=== PATIENT | male | born 1995 | race Caucasian/White ===

== ENCOUNTER 2020-05-17 21:37 | Emergency (ER) | payer SELFPAY ==
[2020-05-17 21:39] VITALS: BP 131/75; PULSE 84; RESP 18; TEMP 35.7; O2SAT 100; BMI 27.1
--- NOTE | 2020-05-17 21:58 | PC.NURSE ---
PER PT THIS IS BULLSHIT, I'LL COME BACK ANOTHER DAY. PATIENT EDUCATED AND ENCOURAGED TO REMAIN FOR EVAL AND TREATMENT.
== END 2020-05-17 23:10 | disposition left against medical advice (07) ==
LOC: HO.ED 22:52
PROVIDERS: Emergency Provider Emergency Medicine
DX: J30.9 Allergic rhinitis, unspecified (principal); R10.84 Generalized abdominal pain; K40.91 Unilateral inguinal hernia, without obstruction or gangrene, recurrent; Z20.828 Contact with and (suspected) exposure to other viral communicable diseases
CPT/HCPCS: 99281; 99282

== ENCOUNTER 2020-05-18 10:31 | Emergency (ER) | payer OTHER, SELFPAY ==
[2020-05-18 12:01] VITALS: BP 139/88; PULSE 75; RESP 14; TEMP 36.6; O2SAT 99; BMI 26.4
--- NOTE | 2020-05-18 12:07 | ED_ITS ---
HPI - General Adult General Chief complaint: Abdominal Pain Stated complaint: HERNIA Time Seen by Provider: 05/18/20 11:56 Source: patient Mode of arrival: ambulatory Limitations: no limitations History of Present Illness HPI narrative: Pt here with multiple complaints. C/o sneezing, dry cough, scratchy throat x 2 days. No fevers/chills/body aches. Also c/o left lower abdomen bulging and pain. 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 Onset (ago): day(s) Location: abdomen Radiation: non-radiation Severity: mild Related Data Previous Rx's Medication Instructions Recorded cetirizine 10 mg PO DAILY #20 tab 05/18/20 fluticasone propionate [Flonase 1 spray INTRANASAL BID #9.9 ml 05/18/20 Allergy Relief] Allergies Allergy/AdvReac Type Severity Reaction Status Date / Time No Known Allergies Allergy Unverified 04/29/20 16:30 [No Known Allergies*] Review of Systems Review of Systems: Yes all other systems are reviewed and are negative Constitutional: Constitutional: Reports no additional constitutional complaints, Denies body ache(s), Denies chills, Denies fever(s), Denies headache(s) and Denies weakness Eyes: Eyes: Reports no additional eye complaints and Denies diplopia ENT: Reports system reviewed and no additional complaints, except as documented, Denies dizziness, Denies headache(s) and Denies neck pain Comments: rhinorrhea, itching throat, sneezing Cardiovascular: Cardiovascular: Reports no additional cardiovascular complaints, Denies chest pain, Denies leg edema and Denies dyspnea Respiratory: Respiratory: Reports no additional respiratory complaints, Reports cough and Denies dyspnea Gastrointestinal: Gastrointestinal: Reports no additional gastrointestinal com plaints, Denies abdominal pain, Denies diarrhea, Denies nausea and Denies vomiting Musculoskeletal: Musculoskeletal: Reports no additional musculoskeletal complaints, Denies back pain, Denies myalgias, Denies arthralgias, Denies joint swelling, Denies neck pain, Denies numbness and Denies tingling Integumentary/Breasts: Skin/Breast: Reports system reviewed and no additional complaints, except as docu and Denies rash Neurologic: Reports system reviewed and no additional complaints, except as documented, Denies Abnormal speech present, Denies dizziness, Denies headache(s), Denies numbness, Denies tingling and Denies weakness PMFSH Past Medical History Attestation statement: The following information was validated with the patient. Source: obtained from family and nursing notes reviewed Medical History No known health problems Surgical abdomen Physical Exam Vital Signs and I&O and Narrative: Vital Signs and I&O: Vital Signs Temp 98 F 05/18/20 12:08 Pulse 75 05/18/20 12:08 Resp 13 05/18/20 12:08 BP 139/88 05/18/20 12:08 Pulse Ox 99 05/18/20 12:08 Intake & Output 05/17/20 05/18/20 05/18/20 18:59 06:59 18:59 Weight 88.451 kg Body Mass Index 26.4 Const: General: cooperative, healthy appearing, comfortable and no acute distress Orientation/consciousness: patient oriented x3 Limitations: no limitations HENMT: Head: Yes normal to inspection Ears: hearing grossly normal bilaterally General nose exam: Normal external nose present Face and sinus: Yes normal facial exam Mouth: Normal oral and palatal mucosa present Throat: Yes posterior oropharynx normal Eyes: General: appearance normal, both eyes and all related structures Pupils: Equal, round and reactive pupils present Neck: Neck: Yes normal visual inspection Chest: Chest palpation & inspection: normal inspection of the chest Resp: Effort & Inspection: normal respiratory effort Auscultation: clear to auscultation bilaterally Cardio: Rate: regular rate Rhythm: regular rhythm Peripheral pulses: Peripheral pulses 2+ throughout GI: Inspection: Yes normal to inspection Palpation (GI): Soft to palpation, nontender and no masses Auscultation: normal bowel sounds Back/Spine/Pelvis: Thoracic/Lumbar Spine: thoracic and lumbar spine normal to inspection Skin: General skin exam: no rashes or lesions noted Neuro: General: patient oriented x3, no focal motor deficits and normal sensation to monofilament Cranial nerves: Yes Equal, round and reactive pupils present Cognition (Neuro): normal cognition Speech: No Abnormal speech present Gait exam (Neuro): Normal gait present Motor exam (neuro): 5/5 motor strength present throughout Extrem: General: Yes normal to inspection Medical Decision Making MDM Narrative Medical decision making narrative: Pt here with symptoms of allergic rhinitis. Offered COVID testing but less likely and patient declined. Also c/o intermittent bulge to left lower abdomen worsened with coughing, lifting heavy objects. On exam no palpable lymphadenopathy or inguinal hernia but HPI c/w with inguinal hernia. Reviewed worrisome signs/symptoms with patient and when to return to ED. Comfortable with discharge home . Discharge Plan Discharge Clinical Impression: Allergic rhinitis Qualifiers: Allergic rhinitis trigger: other Allergic rhinitis seasonality: seasonal Qualified Code(s): J30.89 - Other allergic rhinitis Inguinal hernia Qualifiers: Obstruction and gangrene presence: without obstruction or gangrene Laterality: unilateral Recurrence: recurrent Qualified Code(s): K40.91 - Unilateral inguinal hernia, without obstruction or gangrene, recurrent Patient Disposition: Home, Self-Care Instructions: Inguinal Hernia (ED), Allergic Rhinitis (ED) Additional Instructions: Warm, moist air Follow-up with general surgery if you elect to have this hernia repaired Prescriptions: New cetirizine 10 mg tablet 10 mg PO DAILY Qty: 20 RF: 0 fluticasone propionate [Flonase Allergy Relief] 50 mcg/actuation spray,suspension 1 spray intranasal BID Qty: 9.9 RF: 0 Referrals: Yadira Cano MD [Physician] - 5 days Stand Alone Forms: Work/School Release Interventions: ED Discharge Assessment Last Done: 05/18/20 12:19 Discharge Date/Time: 05/18/20 12:19
[2020-05-18 12:08] VITALS: BP 139/88; PULSE 75; RESP 13; TEMP 36.6; O2SAT 99; BMI 26.4
== END 2020-05-18 12:19 | disposition home or self-care (01) ==
PROVIDERS: Emergency Provider Emergency Medicine
DX: K40.91 Unilateral inguinal hernia, without obstruction or gangrene, recurrent (principal); J30.89 Other allergic rhinitis
CPT/HCPCS: 99283

== ENCOUNTER 2020-06-20 21:46 | Emergency (ER) | payer OTHER, SELFPAY ==
--- NOTE | 2020-06-20 22:43 | PC.NURSE ---
patient advised to wait and be tested for covid stated he did not want to wait anymore and left
== END 2020-06-20 22:42 | disposition left against medical advice (07) ==
PROVIDERS: Emergency Provider Emergency Medicine
DX: R05 Cough (principal); R51.9 Headache, unspecified
CPT/HCPCS: 99281

== ENCOUNTER 2020-07-06 14:59 | Outpatient (REF) | payer OTHER, SELFPAY | END 2020-07-06 15:00 | disposition home or self-care (01) | LOC: HO.LAB 14:59 | PROVIDERS: Visit Provider Internal Medicine | DX: Z20.828 Contact with and (suspected) exposure to other viral communicable diseases (principal) | CPT/HCPCS: C9803; U0003 ==

== ENCOUNTER 2020-07-29 01:52 | Emergency (ER) | payer OTHER, SELFPAY ==
[2020-07-29 01:59] VITALS: BP 138/80; PULSE 66; PULSE 71; RESP 16; TEMP 36.6; O2SAT 97; O2SAT 98; BMI 23.2
--- NOTE | 2020-07-29 02:17 | CT_ITS ---
EXAMINATION: CT ABDOMEN AND PELVIS WITH CONTRAST CLINICAL INFORMATION: Left inguinal pain. COMPARISON: None. TECHNIQUE: Contiguous axial thin section helical images of the abdomen and pelvis were performed following the administration of 100 mL of intravenous Omnipaque 300. The data set was reformatted in the coronal and sagittal planes and reviewed on an independent workstation. DLP: 575 mGy-cm. FINDINGS: The visualized lung bases are clear. The visualized portions of the heart are unremarkable. The liver is of normal size and attenuation without focal lesions nor intrahepatic biliary ductal dilation. A normal gallbladder is identified. There is no wall thickening or discernible pericholecystic fluid. The spleen, pancreas, adrenal glands are unremarkable. Both kidneys are of normal size and attenuation without hydronephrosis. There is a 2 mm nonobstructive calculus within the interpole region of the right kidney. Following the administration of IV contrast, prompt symmetric nephrograms are displayed. There are numerous bilateral renal cysts. There is no abdominal free fluid. There is neither mesenteric nor retroperitoneal lymphadenopathy. Normal unopacified loops of small and large bowel are identified. There is no pelvic free fluid. The urinary bladder is unremarkable. There are numerous cysts posterior to the urinary bladder, likely within the prostate gland. There is neither pelvic nor inguinal lymphadenopathy. Bone windows: Neither sclerotic nor lytic bone lesions are identified. CT/CT abdomen pelvis w con IMPRESSION: Numerous renal cysts bilaterally. No hydronephrosis. Punctate nonobstructive right renal calculus. No acute abdominal or pelvic inflammatory or infectious processes. Numerous prostatic and periprostatic cysts. Consider correlation with ultrasound or pelvic MRI for further tissue characterization. Automated exposure control (Care Dose) Adjustment of the mA and/or kv according to patient size (this includes techniques or standardized protocols for targeted exams where dose is matched to indication / reason for exam; i.e. extremities or head).
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
[2020-07-29 02:28] LABS: Basophils Percent Auto 0.6 % (0-2); Eosinophils Absolute Auto 0.2 X10*3/uL (0.0-0.4); Eosinophils Percent Auto 2.7 % (0-4); Hematocrit 45.1 % (42-52); Hemoglobin 15.7 g/dl (14.0-18.0); Imm Gran Abs Auto 0.01 X10*3/uL (0.00-0.03); Imm Gran Pct Auto 0.1 % (0.0-0.4); Lymphocytes Absolute Auto 2.2 X10*3/uL (1.2-4.9); Lymphocytes Percent Auto 30.7 % (20-40); MANUAL DIFF FLAG NO; Mean Corpuscular HGB Conc 34.8 g/dl (31.0-36.0); Mean Corpuscular Hemoglobin 30.5 pg (27.0-33.0); Mean Corpuscular Volume 87.7 fL (80-98); Mean Platelet Volume 10.6 fL (9.4-12.4); Monocytes Absolute Auto 0.7 X10*3/uL (0.1-1.2); Monocytes Percent Auto 9.7 % (2-11); Neutrophils Percent Auto 56.2 % (45-73); Platelet Count 241 X10*3/uL (160-400); Red Blood Count 5.14 X10*6/uL (4.60-5.80); Red Cell Distribution Width 12.5 % (11.0-16.0); White Blood Count 7.1 X10*3/uL (4.8-10.8)
[2020-07-29] MEDS: 0.9 % Sodium Chloride 1,000 ML 999 ML IV (02:53)
[2020-07-29] MEDS: Ketorolac Tromethamine 15 MG/ML VIAL IVPUSH (02:57)
[2020-07-29 02:59] LABS: Alanine Aminotransferase 17 U/L (0-40); Albumin Level 4.2 g/dL (3.5-5.0); Alkaline Phosphatase 55 U/L (39-117); Anion Gap 12 (12-20); Aspartate Amino Transferase 20 U/L (5-37); Bilirubin Total 0.5 mg/dL (0.0-1.0); Blood Urea Nitrogen 13 mg/dL (9-16); Carbon Dioxide 27 mmol/L (22-29); Chloride 103 mmol/L (96-108); Creatinine Clr Calc Pharmacy 140.6; Estimated Glomerular Filt Rate > 60; Glucose Random 91 mg/dL (60-115); Potassium 4.1 mmol/l (3.3-5.1); Sodium 138 mmol/L (135-145); Total Protein 6.3 g/dL (6.5-8.0)
[2020-07-29 04:00] VITALS: BP 107/74; PULSE 63; RESP 15; O2SAT 99
--- NOTE | 2020-07-29 04:04 | PC.NURSE ---
Patient back from CAT Scan. Currently awaiting results of scan and re-evaluation from
[2020-07-29] MEDS: iohexoL 350 MG/ML 100 ML INFUS..BTL 85 ML IV (05:36)
== END 2020-07-29 05:29 | disposition home or self-care (01) ==
PROVIDERS: Emergency Provider Student in an Organized Health Care Education/Training Program
DX: K40.91 Unilateral inguinal hernia, without obstruction or gangrene, recurrent (principal); R10.30 Lower abdominal pain, unspecified
CPT/HCPCS: 36415; 74177; 80053; 85025; 96361; 96374; 99284; J1885; Q9967

== ENCOUNTER → 2020-08-04 13:51 | Outpatient (BNVA) | payer OTHER, SELFPAY | PROVIDERS: Visit Provider Surgery | DX: K40.90 Unilateral inguinal hernia, without obstruction or gangrene, not specified as recurrent (principal) | CPT/HCPCS: 99202 ==

== ENCOUNTER 2020-09-03 09:05 | Day surgery (SDC) | payer OTHER, SELFPAY ==
[2020-08-30 10:26] VITALS: BMI 22.5
[2020-09-02 08:23] VITALS: BMI 22.5
--- NOTE | 2020-09-02 10:54 | HO.ANESPROP2 ---
Documented by User: Marzena Connelly 09/02/20 10:55 HPI - Anesthesia Eval Consult details Narrative: 24yo M for Left Hernia Repair Inguinal [facility] Past Medical History Medical History Hernia Left inguinal hernia No known health problems Social History Social History Smoking Status: Never smoker Second Hand Smoke Exposure: No Use of substances other than those prescribed or required for medical reasons: Yes Substance Use Type: Marijuana Advance Directives: No Advance Directives Information Provided: No Advance Directives on File: No Meds Allergies Allergy/AdvReac Type Severity Reaction Status Date / Time No Known Allergies Allergy Verified 07/29/20 02:52 [No Known Allergies*] Home Medications Medication Instructions Recorded Confirmed Type No Known Home Meds 07/29/20 08/30/20 History Exam Exam Date and Time: September 02, 2020 1054 Height,Weight and Vital Signs: Height 6 ft 4 in Weight 84 kg Pertinent Lab Results Pertinent Lab Results: Laboratory Tests 07/29/20 07/29/20 02:22 02:22 WBC 7.1 Hgb 15.7 Hct 45.1 Plt Count 241 Sodium 138 Potassium 4.1 Chloride 103 Carbon Dioxide 27 BUN 13 Creatinine 1.00 Assessment and Plan Assessment Anesthesia Assessment: Chart Reviewed Documented by User: Mare Parra 09/03/20 09:29 [facility] Past Medical History Medical History Hernia Left inguinal hernia No known health problems Social History Social History Smoking Status: Never smoker Second Hand Smoke Exposure: No Use of substances other than those prescribed or required for medical reasons: Yes Substance Use Type: Marijuana Advance Directives: No Advance Directives Information Provided: No Advance Directives on File: No Meds Allergies Allergy/AdvReac Type Severity Reaction Status Date / Time No Known Allergies Allergy Verified 07/29/20 02:52 [No Known Allergies*] Home Medications Medication Instructions Recorded Confirmed Type No Known Home Meds 07/29/20 08/30/20 History Exam Airway Mallampati Class: II TM Dist: >3cm Neck ROM: Full Heart: RRR Lungs: CTA
[2020-09-03] VITALS (7 sets, daily range): BP systolic 109–145; BP diastolic 57–89; PULSE 67–89; RESP 14–18; TEMP 36.5–36.7; O2SAT 97–99
--- NOTE | 2020-09-03 09:38 | MHC.SHP ---
Pre-Procedural Eval Section B Chief Complaint: left inguinal hernia Allergies: Allergies Allergy/AdvReac Type Severity Reaction Status Date / Time No Known Allergies Allergy Verified 09/03/20 09:35 [No Known Allergies*] Plan I have reviewed the history and physical and performed a pertinent physical examination on my patient. No changes have occurred unless specified.
[2020-09-03] MEDS: Lactated Ringers 1,000 ML 100 ML IVCONT (09:50)
[2020-09-03] MEDS: ceFAZolin Sodium/Dextrose,Iso 2 GM/50 ML PIGGYBACK IV (09:50)
--- NOTE | 2020-09-03 10:58 | PM.OP ---
Brief Operative Note Date of Service: 09/03/20 Pre-op diagnosis: LIH Procedure: repair of LIH Implants: mesh Surgeon: Daniel Laws MD Anesthesia: GLMA Travel Administrator: Miladis Bonds Estimated blood loss (mL): 2 Pathology: none sent Condition: stable Disposition: PACU
--- NOTE | 2020-09-03 11:22 | OP_ITS ---
SURGEON: Daniel Laws MD INDICATIONS: The patient is a 24-year-old male with a reducible mass in the left groin consistent with an inguinal hernia. He understood the technique of repair. He is aware of the risks, benefits, and alternatives. PREOPERATIVE DIAGNOSIS: Left inguinal hernia. POSTOPERATIVE DIAGNOSIS: Left inguinal hernia, indirect. PROCEDURE PERFORMED: Repair of left inguinal hernia with mesh and plug. ESTIMATED BLOOD LOSS: COMPLICATIONS: ANESTHESIA: ASSISTANTS: Miladis Bonds PA-C. SPECIMENS: DESCRIPTION OF PROCEDURE: He was brought to the operating room, placed supine on the table under general anesthesia via laryngeal mask airway. The left groin was prepped and draped in usual sterile fashion. A surgical time-out was done. The patient received cefazolin 2 g IV preoperatively. I infiltrated the planned line of incision along an imaginary line from anterior superior iliac spine to the pubic ramus. I made a short incision using blade #15, it was carried down to full-thickness skin and subcutaneous fat to expose the external oblique aponeurosis. We bluntly dissected the external oblique aponeurosis to define the external ring. I opened up the external oblique aponeurosis using electrocautery to enter the inguinal canal. I applied hemostats to both edges of the divided external oblique aponeurosis. I bluntly dissected the underside of the external oblique aponeurosis to create a pocket for the mesh. I then did blunt dissection of the spermatic cord and its contents using an index finger until I was able to pass a [place] drain around this. This Dionte drain was used for traction. I identified the vas deferens and the accompanying vessels. I then was able to identify sac at the anteromedial aspect along with the lipoma. I bluntly dissected this off the rest of the cord contents down through the internal ring. This was therefore an indirect hernia. I reinforced the internal ring with a small-sized plug. I secured the plug with Prolene 2-0 suture to shelving edge of the inguinal ligament laterally and internal oblique superiorly, medially using its inner leaves. I reinforced the floor of the canal with keyhole mesh. The tails of the mesh were passed around the cord at the level of the internal ring and were secured together with Prolene 2-0 sutures. I secured the mesh to the shelving edge of the inguinal ligament laterally, the internal oblique superiorly and medially as well as the pubic ramus inferomedially using Prolene 2-0 suture as well. We copiously irrigated. Once hemostasis was ensured, I removed the Dionte drain and closed the external oblique aponeurosis with running Dexon 2-0 stitch to re-create the external ring. The subcutaneous layer was reapposed with Dexon 3-0 sutures. Skin closure was achieved with Dexon 4-0 subcuticular running sutures. Steri-Strips and dressings were applied. The incision was infiltrated with Marcaine 0.5% for postop analgesia and the procedure was completed. The patient tolerated procedure well. There were no complications noted. Initial and final counts of sponges and instruments were correct. Estimated blood loss was about 2 mL. The patient was extubated without difficulty and transferred to recovery room with stable vital signs. MD PAYTON Martin/FELIPE / [id number] MTDD
--- NOTE | 2020-09-03 12:08 | HO.POSTANES ---
Post Anesthesia Evaluation Post Anesthesia Evaluation Vital Signs: Vital Signs Temp Pulse Resp BP Pulse Ox 09/03/20 11:45 75 14 145/86 H 99 09/03/20 11:30 67 18 139/89 99 09/03/20 11:14 70 18 118/71 98 09/03/20 11:10 73 16 113/62 99 09/03/20 11:05 75 16 115/57 L 99 09/03/20 11:00 97.7 F 75 14 109/63 99 09/03/20 09:35 98.0 F 89 16 126/85 97 Anesthesia: General LMA Mental Status: Awake Pain Control: Satisfactory Nausea/Vomiting: None Hydration: Adequate Anesthesia-Related Issues: No Anes. Related Issues
== END 2020-09-03 12:30 | disposition home or self-care (01) ==
PROVIDERS: Visit Provider Surgery
PROC: (CPT 49505; principal; 2020-09-03 10:30)
DX: K40.90 Unilateral inguinal hernia, without obstruction or gangrene, not specified as recurrent (principal); F12.90 Cannabis use, unspecified, uncomplicated
CPT/HCPCS: 49505; C1781; J0690; J1885; J2250; J3010

== ENCOUNTER 2022-03-08 07:37 | Emergency (ER) | payer OTHER, SELFPAY ==
--- NOTE | ~2022-03-08 | XR_ITS ---
EXAMINATION: XR KNEE, RIGHT CLINICAL INFORMATION: Right knee injury. COMPARISON: None TECHNIQUE: Four views of the right knee. FINDINGS: Bones and soft tissues are normal. No fracture or joint effusion. Alignment is anatomic. Joint spaces are well maintained. Mild prepatellar soft tissue swelling is seen. XR/XR knee RT 2V IMPRESSION: Mild prepatellar soft tissue swelling without acute underlying osseous abnormality.
[2022-03-08 07:39] VITALS: BP 153/85; PULSE 73; RESP 18; TEMP 36.8; O2SAT 96; BMI 23.1
--- NOTE | 2022-03-08 09:20 | ED_ITS ---
HPI - Extremity Problem General Chief complaint: Extremity Problem Stated complaint: r knee inj at work Time Seen by Provider: 03/08/22 08:59 Source: patient Mode of arrival: ambulatory Limitations: no limitations History of Present Illness HPI Narrative: Patient comes to the emergency room complaining of right-sided knee pain that started 7 years ago. Patient states that he has never been seen by his primary care physician regarding his knee pain that has been going on for 7 years. Patient states that now his knee hurts more with certain movements, denies any trauma, no falls, no swelling, no erythema, no fever chills. Also, patient complaining of a rash in his trunk, abdomen and back. The rash is not painful, does not itch, but it has been spreading over the last few weeks Related Data Previous Rx's Medication Instructions Recorded ibuprofen 600 mg tablet 600 mg PO Q6H PRN pain #30 tabs 09/03/20 oxycodone-acetaminophen 5 mg-325 1 - 2 tab PO Q4-6H PRN pain #30 09/03/20 mg tablet (Percocet) tabs selenium sulfide 2.5 % lotion 1 appl topical .qd 2 weeks #120 mL 03/08/22 Allergies Allergy/AdvReac Type Severity Reaction Status Date / Time No Known Allergies Allergy Verified 09/03/20 09:35 [No Known Allergies*] Review of Systems Review of Systems: Constitutional : No Weight loss, No Fever, No Chills, No Night Sweats, No Fatigue, No Malaise ENT/Mouth : No Hearing loss, No Ear Pain, No Nasal Congestion, No Sinus Pain, No Hoarseness, No sore throat, No Rhinorrhea, No Swallowing Difficulty Eyes: No Eye Pain, No Swelling, No Redness, No Foreign Body, No Discharge, No Vision Changes Cardiovascular : No Chest Pain, No SOB, No Dyspnea on Exertion, No Orthopnea, No Edema, No Palpitations Respiratory : No Cough, No Sputum, No Wheezing, No Smoke Exposure, No Dyspnea Gastrointestinal : No Nausea, No Vomiting, No Diarrhea, No Constipation, No abdominal Pain, No Hematochezia, No Melena Genitourinary : no irregular bleeding, No Dysuria, No Urinary Frequency, No Hematuria, No Urinary Incontinence, No Urgency, No Flank Pain, No Urinary Flow Changes, No Hesitancy Musculoskeletal : Complaining of chronic right knee pain, No Myalgias, No Joint Swelling Skin : Complaining of several weeks/months of a rash spreading throughout his chest, abdomen and back Neuro : No Weakness, No Numbness, No Paresthesias, No Loss of Consciousness, No Dizziness, No Headache Psych : No Anxiety/Panic, No Depression, No SI/HI/AH/VH, No Social Issues, Heme/Lymph: No Bruising, No Bleeding,No Lymphadenopathy Endocrine : No Polyuria, No Polydipsia, No Temperature Intolerance [facility] Past Medical History Medical History Hernia Left inguinal hernia No known health problems Social History Social History Second Hand Smoke Exposure: No Substance Use Type: Marijuana Advance Directives: No Advance Directives Information Provided: No Physical Exam Vital Signs: Vital Signs: Last Vital Signs Temp 98.2 F 03/08/22 07:39 Pulse 73 03/08/22 07:39 Resp 18 03/08/22 07:39 BP 153/85 H 03/08/22 07:39 Pulse Ox 96 03/08/22 07:39 O2 Del Method 03/08/22 07:39 BMI result Body Mass Index 23.1 Const: Other: Appearance: Alert. Oriented X3. No acute distress. Eyes: Pupils equal, round and reactive to light. ENT: Pharynx normal. Neck: Normal inspection. Neck supple. No lymph nodes noted. No crepitus CVS: Normal heart rate and rhythm. Pulses normal. Normal S1 and S2 Respiratory: No respiratory distress. Breath sounds normal. No Wheezing. No ra les Abdomen: Soft and nontender. No rigidity. No distention. Skin: Skin warm and dry. In the chest abdomen and back, patient has a macular rash, hyper pigmented lesions Extremities: No lower extremity edema. No Lacerations. No Rash. The knee on the right and left-sided loop within normal limits. Patient is able to flex and extend, patient able to walk within normal limits Neuro: Oriented X 3. No motor deficit. No sensory deficit. Moving all extremities. No slurred speech. CN 2 through 12 grossly intact Psych: calm, cooperative, normal affect Course Course Course Narrative: I discussed with the patient that his knee does not have any osseous abnormality. However, he needs to follow up with his primary care physician or with orthopedics for his chronic knee pain. No further recommendations at this time other than acid and ice. Patient will be sent antifungal medication for pityriasis versicolor MDM - Extremity (Nontraumatic) Imaging Data Knee x-ray: Radiologist's impression: INDINGS: Bones and soft tissues are normal. No fracture or joint effusion. Alignment is anatomic. Joint spaces are well maintained. Mild prepatellar soft tissue swelling is seen. XR/XR knee RT 2V IMPRESSION: Mild prepatellar soft tissue swelling without acute underlying osseous abnormality. Discharge Plan Discharge Clinical Impression: Chronic knee pain, Pityriasis versicolor Patient Disposition: Home, Self-Care Instructions: Tinea Versicolor (ED), Knee Pain (ED) Additional Instructions: Please follow-up with your primary care physician tomorrow. If you have any worsening or new symptoms, please return to the emergency room or call 911 Prescriptions: New selenium sulfide 2.5 % lotion 1 appl topical .qd 14 Days Qty: 120 2RF No Action oxycodone-acetaminophen [Percocet] 5-325 mg tablet 1 - 2 tab PO Q4-6H PRN (Reason: pain) Qty: 30 0RF ibuprofen 600 mg tablet 600 mg PO Q6H PRN (Reason: pain) Qty: 30 2RF
== END 2022-03-08 09:43 | disposition home or self-care (01) ==
PROVIDERS: Emergency Provider Emergency Medicine
DX: G89.29 Other chronic pain (principal); M25.561 Pain in right knee; B36.0 Pityriasis versicolor; F12.90 Cannabis use, unspecified, uncomplicated
CPT/HCPCS: 73560; 99282; 99283

== ENCOUNTER 2023-01-26 20:16 | Emergency (ER) | payer OTHER, SELFPAY ==
[2023-01-26 20:19] VITALS: BP 132/93; PULSE 83; RESP 19; TEMP 36.6; O2SAT 96; BMI 26.8
--- NOTE | 2023-01-26 20:19 | ED.ABDPAIN ---
HPI - Abdominal Pain General Chief Complaint: Abdominal Pain Stated Complaint: Hernia Time Seen by Provider: 01/26/23 21:22 Source: patient Mode of arrival: ambulatory History of Present Illness HPI narrative: 27-year-old male who presents with complaints of swelling at the right inguinal region that increases when he is at work doing heavy lifting. He denies any fever, chills, penile discharge, vomiting does report occasional nausea but otherwise denies any dysuria and has continued to have regular bowel movements. He denies any scrotal pain. Related Data Previous Rx's Medication Instructions Recorded ibuprofen 600 mg tablet 600 mg PO Q6H PRN pain #30 tabs 09/03/20 oxycodone-acetaminophen 5 mg-325 1 - 2 tab PO Q4-6H PRN pain #30 09/03/20 mg tablet (Percocet) tabs selenium sulfide 2.5 % lotion 1 appl topical .qd 2 weeks #120 mL 03/08/22 Allergies Allergy/AdvReac Type Severity Reaction Status Date / Time No Known Allergies Allergy Verified 09/03/20 09:35 [No Known Allergies*] Review of Systems Review of Systems Pertinent positives and negatives as stated in HPI PMFSH Past Medical History Source: nursing notes reviewed Medical History Hernia Left inguinal hernia No known health problems Social History Social History Alcohol intake: never Smoked in Last 30 Days: Yes Second Hand Smoke Exposure: No Use of substances other than those prescribed or required for medical reasons: Yes Substance Use Type: Marijuana Substance Use Frequency: Daily Last Used Substance: Hours (ago) Any prior treatment program specific to substance use: No Advance Directives: No Advance Directives Information Provided: No Physical Exam ED Vital Signs: Vital Signs - 24 hr 01/26/23 20:19 01/26/23 20:58 01/26/23 23:09 Temperature 97.9 F 98.4 F 98.8 F Pulse Rate 83 69 80 Respiratory Rate 19 16 18 Blood Pressure 132/93 H 138/80 110/70 Pulse Oximetry 96 97 99 Oxygen Delivery Method Room Air Room Air Room Air BMI result Body Mass Index 26.8 VITAL SIGNS: Reviewed. GENERAL: Well developed, well nourished, in no acute distress. HEAD: Normocephalic/atraumatic EYES: PERRLA, EOMI EARS: Ext canals without abnormality NOSE: Nares patent bilateral OROPHARYNX: no oral lesions noted, posterior pharynx clear NECK: Supple, no adenopathy LUNGS: Normal breath sounds. No adventitious sounds or accessory muscle use. SpO2<99> CARDIOVASCULAR: Regular rate and rhythm without noted murmurs ABDOMEN: Soft, non-tender, non-distended with bowel sounds. 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 MUSCULOSKELETAL: No tenderness, deformities, or effusions noted on gross inspection. EXTREMITIES: No cyanosis, clubbing or edema. SKIN: Inspection of the skin reveals no rashes NEUROLOGIC: Alert and oriented x 4. Strength and sensation to light touch were grossly intact x 4. Course Course Course Narrative: This is a rapid medical exam. Deferred additional HPI, ROS, PE to primary provider. 27 yo male with previous inguinal hernia repair left side here with right sided groin/abdominal pain and swelling which began when lifting something heavy at work day. +nausea Will get labs, UA VSS Medical Decision Making Medical Decision Making MDM Narrative: 27-year-old male with history and clinical presentation most consistent with right inguinal hernia the does not have evidence of incarceration/strangulation. He is discharged with instructions on weight limitations and follow-up with general surgery. Differential Diagnosis Please see the discussion above Lab Data Please see the discussion above 01/26/23 20:44 01/26/23 20:44 Labs: Lab Results 01/26/23 01/26/23 01/26/23 Range/Units 20:44 20:44 21:07 WBC 9.0 (4.8-10.8) X10*3/uL RBC 5.38 (4.60-5.80) X10*6/uL Hgb 15.9 (14.0-18.0) g/dl Hct 44.6 (42.0-52.0) % MCV 82.9 (80.0-98.0) fL MCH 29.6 (27.0-33.0) pg MCHC 35.7 (31.0-36.0) g/dl RDW 12.2 (11.0-16.0) % Plt Count 262 (160-400) X10*3/uL MPV 9.7 (9.4-12.4) fL Immature Gran % (Auto) 0.3 (0.0-0.4) % Neut % (Auto) 45.0 (45-73) % Lymph % (Auto) 44.1 H (20-40) % [place] % (Auto) 8.0 (2-11) % Eos % (Auto) 1.9 (0-4) % Baso % (Auto) 0.7 (0-2) % Lymph # (Auto) 4.0 (1.2-4.9) X10*3/uL [place] # (Auto) 0.7 (0.1-1.2) X10*3/uL Eos # (Auto) 0.2 (0.0-0.4) X10*3/uL Baso # (Auto) 0.1 (0.0-0.2) X10*3/uL Abs Immat Gran (auto) 0.03 (0.00-0.03) X10*3/uL Absolute Neuts (auto) 4.1 (2.0-8.3) x10*3/uL Absolute Nucleated RBC 0.000 (0.0-0.012) X10*3/uL Nucleated RBC % (auto) 0.0 (0.0-0.2) /100WBC Sodium 141 (135-145) mmol/L Potassium 4.3 (3.3-5.1) mmol/L Chloride 106 (96-108) mmol/L Carbon Dioxide 27 (22-29) mmol/L Anion Gap 12 (12-20) BUN 14 (9-16) mg/dL Creatinine 1.27 (0.5-1.4) mg/dL Estim Creat Clear Calc 108.2 Estimated GFR > 60 Random Glucose 79 (60-115) mg/dL Calcium 10.0 D (8.4-10.2) mg/dL Urine Color Yellow Urine Appearance Clear Urine pH 7.0 (5.0-9.0) Ur Specific [place] 1.025 (1.005-1.025) Urine Protein Negative (Neg-Trace) mg/dL Urine Glucose (UA) Negative (Negative) mg/dL Urine Ketones Negative (Negative) mg/dL Urine Blood Negative (Negative) Urine Nitrite Negative (Negative) Ur Leukocyte Esterase Negative (Negative) Discharge Plan Discharge Clinical Impression: Inguinal hernia, right Patient Disposition: Home, Self-Care Instructions: Inguinal Hernia (ED) Additional Instructions: 1. Recomiende Tylenol/ibuprofeno de venta mckenna, duchas tibias cuando sienta dolor. 2. Se le trevizo dado madalyn derivaci?n para seguimiento con cirug?a general para reevaluaci?n y reparaci?n de la hernia si est? indicado. Regrese a la nick de emergencias si los s?ntomas empeoran. 1. Recommend ddrn-mum-sebnqqn Tylenol/ibuprofen, warm showers when you are having pain. 2. You have been given a referral to follow-up with general surgery for re-evaluation and repair of the hernia if it is indicated. Return to the ER for any worsening symptoms. Prescriptions: No Action oxycodone-acetaminophen [Percocet] 5-325 mg tablet 1 - 2 tab PO Q4-6H PRN (Reason: pain) Qty: 30 0RF ibuprofen 600 mg tablet 600 mg PO Q6H PRN (Reason: pain) Qty: 30 2RF selenium sulfide 2.5 % lotion 1 appl topical .qd 14 Days Qty: 120 2RF Referrals: Daniel Laws MD [Physician] - Stand Alone Forms: Work/School Release Print Language: Lithuanian
[2023-01-26 20:49] LABS: MANUAL DIFF FLAG NO
[2023-01-26 20:50] LABS: Basophils Absolute Auto 0.1 X10*3/uL (0.0-0.2); Basophils Percent Auto 0.7 % (0-2); Eosinophils Absolute Auto 0.2 X10*3/uL (0.0-0.4); Eosinophils Percent Auto 1.9 % (0-4); Hematocrit 44.6 % (42.0-52.0); Hemoglobin 15.9 g/dl (14.0-18.0); Imm Gran Abs Auto 0.03 X10*3/uL (0.00-0.03); Imm Gran Pct Auto 0.3 % (0.0-0.4); Lymphocytes Percent Auto 44.1 % (20-40); Mean Corpuscular HGB Conc 35.7 g/dl (31.0-36.0); Mean Corpuscular Hemoglobin 29.6 pg (27.0-33.0); Mean Corpuscular Volume 82.9 fL (80.0-98.0); Mean Platelet Volume 9.7 fL (9.4-12.4); Monocytes Absolute Auto 0.7 X10*3/uL (0.1-1.2); Neutrophils Absolute Auto 4.1 x10*3/uL (2.0-8.3); Platelet Count 262 X10*3/uL (160-400); Red Blood Count 5.38 X10*6/uL (4.60-5.80); Red Cell Distribution Width 12.2 % (11.0-16.0)
[2023-01-26 20:58] VITALS: BP 138/80; PULSE 69; RESP 16; TEMP 36.9; O2SAT 97
--- NOTE | 2023-01-26 21:04 | PC.NURSE ---
patient in bed with eyes open patient vitals are stable patient stated the pain is a 8/10 patient will continue to be monitored for safety
[2023-01-26 21:07] LABS: Anion Gap 12 (12-20); Blood Urea Nitrogen 14 mg/dL (9-16); Carbon Dioxide 27 mmol/L (22-29); Chloride 106 mmol/L (96-108); Creatinine Clr Calc Pharmacy 108.2; Estimated Glomerular Filt Rate > 60; Glucose Random 79 mg/dL (60-115); Potassium 4.3 mmol/L (3.3-5.1); Sodium 141 mmol/L (135-145)
--- OUTSIDE RECORDS SUMMARY | 2023-01-26 21:09 | XMS_ITS | Continuity of Care Document ---
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 Name Role Phone Ailyn Gaming Primary Care Physician [phone] Encounter [facility] Date(s): 01/04/20 - 01/05/[address] [address]- [facility] Encounter Diagnosis Abdominal pain(Final) - 01/04/20 Right knee pain(Final) - 01/04/20 Discharge Disposition: A-D/C Home Attending Physician: Tomas Cosme MD Admitting Physician: Tomas Cosme MD Referring Physician: Not on Staff, Referring MD Allergies, Adverse Reactions, Alerts No Known Medication Allergies Results Radiology Reports * Exam Date Time Procedure Performing Provider Status 01/04/20 9:42 PM Abdomen Comp Inc Dec ub and/or Erect Janina Vega (Verified) Notes: (Abdomen Comp Inc Decub and/or Erect) Reason For Exam: Distention RESULT: Abdomen Comp Inc Decub and/or Erect Abdomen Comp Inc Decub and/or Erect Refer to EMR; Reason: Distention; COMPARISON: None. FINDINGS: Normal bowel gas pattern. No abnormal stool retention. No abnormal calcifications. No evidence of pneumoperitoneum. Visualized bilateral lung bases are clear. No acute bony abnormalities. 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 IMPRESSION: No acute abnormality. WSN: [id number] Ordering Physician: Tomas Cosme Dictated By: Winter Freedman MD Dictated Date/Time: 01/04/20 9:49 pm Reviewed By: Winter Freedman MD Signed By: Winter Freedman MD Signed Date/Time: 01/04/20 9:49 pm Transcribed By: ANA Transcribed Date/Time: 01/04/20 9:48 pm Vital Signs Most recent to oldest [Reference Range]: 1 2 3 4 Oxygen Saturation [94-100 %] 100 % (01/04/20 10:32 PM) 100 % (01/04/20 8:05 PM) 100 % (01/04/20 7:18 PM) 100 % (01/04/20 7:18 PM) Pulse Rate [55-90 bpm] 97 bpm *H* (01/04/20 10:32 PM) 87 bpm (01/04/20 8:05 PM) 69 bpm (01/04/20 7:18 PM) 80 bpm (01/04/20 7:18 PM) Blood Pressure [90-138/55-84 mm Hg] 119/98mm Hg (01/04/20 10:32 PM) 132/93mm Hg (01/04/20 8:05 PM) 148/87mm Hg *H* (01/04/20 7:18 PM) Respiratory Rate [16-30 br/min] 20 br/min (01/04/20 10:32 PM) 19 br/min (01/04/20 8:05 PM) 22 br/min (01/04/20 7:18 PM) 18 br/min (01/04/20 7:18 PM) Temperature [96.8-100.4 DegF] 98.1 DegF (01/04/20 8:05 PM) 98.8 DegF (01/04/20 7:18 PM) 98.1 DegF (01/04/20 7:18 PM) Mode of Delivery (Oxygen) Room air (01/04/20 10:32 PM) Room air (01/04/20 8:05 PM) Room air (01/04/20 7:18 PM) Room air (01/04/20 7:18 PM) Blood pressure sites Arm, left (01/04/20 10:32 PM) Arm, right (01/04/20 8:05 PM) Arm, left (01/04/20 7:18 PM) Temperature Route Oral (01/04/20 8:05 PM) Oral (01/04/20 7:18 PM) Oral (01/04/20 7:18 PM)
[2023-01-26 21:20] LABS: Appearance Urine Clear; Color Urine Yellow; Glucose Urine UA Negative (Negative); Leukocyte Esterase Urine Negative (Negative); Nitrite Urine Negative (Negative); Specific Gravity - Urine 1.025 (1.005-1.025); Urine Blood Negative (Negative); Urine Ketones Negative (Negative); Urine Protein Negative (Neg-Trace)
[2023-01-26 23:09] VITALS: BP 110/70; PULSE 80; RESP 18; TEMP 37.1; O2SAT 99
--- NOTE | 2023-01-26 23:10 | PC.NURSE ---
patient is in the process of being released patient was made aware
== END 2023-01-26 23:15 | disposition home or self-care (01) ==
PROVIDERS: Nurse Practitioner Family; Emergency Provider Student in an Organized Health Care Education/Training Program
DX: K40.90 Unilateral inguinal hernia, without obstruction or gangrene, not specified as recurrent (principal); Z79.899 Other long term (current) drug therapy
CPT/HCPCS: 36415; 80048; 81003; 85025; 99283; 99284

== ENCOUNTER → 2023-02-07 08:14 | Outpatient (BNVA) | payer OTHER, SELFPAY | PROVIDERS: Visit Provider Surgery | DX: K40.90 Unilateral inguinal hernia, without obstruction or gangrene, not specified as recurrent (principal) | CPT/HCPCS: 99202 ==

== ENCOUNTER 2023-03-08 10:22 | Day surgery (SDC) | payer OTHER, SELFPAY ==
[2023-03-05 16:06] VITALS: BMI 24.0
--- NOTE | 2023-03-07 09:56 | HO.ANESPROP2 ---
Documented by User: Marzena Connelly NP 03/07/23 09:58 HPI - Anesthesia Eval Consult details Narrative: 27yo M for Right Hernia Repair Inguinal open w/ mesh PMFSH Past Medical History Medical History Depression Hernia Surgical History Surgical History Hx of abdominal surgery Hx of left inguinal hernia repair Social History Social History Alcohol intake: never Patient Tobacco Use Status: Never used Tobacco Second Hand Smoke Exposure: No Use of substances other than those prescribed or required for medical reasons: Yes Substance Use Type: Marijuana Substance Use Frequency: Daily Are you DNR?: No Advance Directives: No Advance Directives Information Provided: Yes Meds Allergies Allergy/AdvReac Type Severity Reaction Status Date / Time No Known Allergies Allergy Verified 03/08/23 10:33 [No Known Allergies*] Exam Exam Date and Time: March 07, 2023 0956 Height,Weight and Vital Signs: Height 6 ft 4 in Weight 89.358 kg Pertinent Lab Results Pertinent Lab Results: Laboratory Tests 01/26/23 01/26/23 20:44 20:44 WBC 9.0 Hgb 15.9 Hct 44.6 Plt Count 262 Sodium 141 Potassium 4.3 Chloride 106 Carbon Dioxide 27 BUN 14 Creatinine 1.27 Assessment and Plan Assessment Anesthesia Assessment: Chart Reviewed Documented by User: Kenna Coffey MD 03/08/23 10:49 PMF Past Medical History Medical History Depression Hernia Surgical History Surgical History Hx of abdominal surgery Hx of left inguinal hernia repair History of Problems with Anesthesia: No Social History Social History Alcohol intake: never Patient Tobacco Use Status: Never used Tobacco Second Hand Smoke Exposure: No Use of substances other than those prescribed or required for medical reasons: Yes Substance Use Type: Marijuana Substance Use Frequency: Daily Are you DNR?: No Advance Directives: No Advance Directives Information Provided: Yes Meds Allergies Allergy/AdvReac Type Severity Reaction Status Date / Time No Known Allergies Allergy Verified 03/08/23 10:33 [No Known Allergies*] Exam Airway Mallampati Class: II TM Dist: >3cm Neck ROM: Full Loose/Missing/Broken Teeth: No Heart: RRR Lungs: CTA Assessment and Plan Assessment Anesthesia Assessment: Anesthesia Plan Discussed Final Anesthetic Review History of Problems with Anesthesia: No NPO: Yes ASA Class: II Final Preanesthetic Review: Meds/Allgs Chart Reviewed, Consent Obtained/Reviewed and Anes Risks/Benef Reviewed Patient Risk: Low Procedure Risk: Low Anesthetic Plan Anesthetic Plan: MAC: Disposition: Standard PACU
[2023-03-08] VITALS (8 sets, daily range): BP systolic 99–141; BP diastolic 52–83; PULSE 61–88; RESP 15–18; TEMP 36.2–36.6; O2SAT 96–99
--- NOTE | 2023-03-08 04:41 | MHC.SHP ---
Pre-Procedural Eval Section A Date of Service: 03/08/23 The patient is an INPATIENT: No Changes since office visit: No Cold of Flu in the past 2 weeks, No New Medical Problems, No Changes in Medication and No Patient answered all questions The History & Physical has been completed within 30 days and I have reviewed it.: Yes Section B Chief Complaint: Unilateral inguinal hernia, without obstruction or Allergies: Allergies Allergy/AdvReac Type Severity Reaction Status Date / Time No Known Allergies Allergy Verified 02/07/23 08:24 [No Known Allergies*] Plan I have reviewed the history and physical and performed a pertinent physical examination on my patient. No changes have occurred unless specified. Time Spent With Patient Time: Total time managing care of this patient today ____ minutes.
[2023-03-08] MEDS: Lactated Ringers 1,000 ML 100 ML IVCONT (11:00)
--- NOTE | 2023-03-08 12:07 | P.OP_ITS ---
Operative Note Operative Note Date of Service: 03/08/23 Narrative: Preoperative diagnosis: []Right inguinal hernia Postop diagnosis: [] same Procedure [] open repair right inguinal hernia with Bard mesh Surgeon: [] El Electric Motor Assembler And Tester: [] MAC converted to LMA Type of Anesthesia: [] Indication for surgery: [] large indirect right inguinal hernia. No direct hernia Findings: [] patient is brought to the operating room, placed on the operative table supine position, after adequate level of MAC anesthesia was induced, this was converted to LMA. Please refer to anesthesia note regarding this. The right groin was then prepped and draped in usual sterile fashion. Using a small right para- inguinal incision, this carried down through skin, subcutaneous tissue, Jorge's fascia. External oblique fibers were opened in their direction with care to isolate and preserve the ilioinguinal nerve throughout the procedure. The spermatic cord was identified and retracted from the field. No direct hernia was demonstrated. Exploration of the cord demonstrated A large indirect hernia was from the spermatic cord and reduced. A Bard plug was placed in the indirect defect and this was sutured inferiorly to the inguinal ligament, and superiorly to the transversalis fascia using interrupted 0 Ethibond suture. Mesh covered the entire inguinal floor. Wound was irrigated, and secured hemostasis. It was closed in the following manner; externally fascia was closed using running 2-0 Vicryl suture. Jorge's fascia was reapproximated using up to 3-0 Vicryl sutures. Interrupted inverted deep dermal 3-0 Vicryl sutures followed by running subcuticular 4-0 Vicryl sutures were placed. Steri-Strips and sterile dressings were applied. Wound was infiltrated with 1% lidocaine / 0.5% Marcaine at completion. Sponge, needle, and instrument counts were reported to be correct. Patient tolerated the procedure well and emerged anesthesia stable condition. EBL minimal
[2023-03-08] MEDS: oxyCODONE HCl Immed Release 5 MG TABLET PO (12:24)
== END 2023-03-08 13:49 | disposition home or self-care (01) ==
PROVIDERS: Visit Provider Surgery
PROC: (CPT 49505; principal; 2023-03-08 12:30)
DX: K40.90 Unilateral inguinal hernia, without obstruction or gangrene, not specified as recurrent (principal); X50.0XXA Overexertion from strenuous movement or load, initial encounter; Y93.89 Activity, other specified; Y92.69 Other specified industrial and construction area as the place of occurrence of the external cause; Y99.0 Civilian activity done for income or pay; Z98.890 Other specified postprocedural states; F12.90 Cannabis use, unspecified, uncomplicated
CPT/HCPCS: 49505; C1781; J0131; J0690; J1100; J1885; J2250; J2405; J2795; J3010

== ENCOUNTER → 2023-03-08 10:22 | Outpatient (BNV) | payer OTHER, SELFPAY | PROVIDERS: Visit Provider Surgery | DX: K40.30 Unilateral inguinal hernia, with obstruction, without gangrene, not specified as recurrent (principal) | CPT/HCPCS: 49505 ==

== ENCOUNTER 2023-03-20 10:42 | Outpatient (AMB) | payer MEDICAID, SELFPAY ==
--- NOTE | 2023-03-20 10:47 | MHC.OFFVIS ---
Intake Vital Signs 03/20/23 10:56 Weight 196 lb BP 139/75 Blood Pressure Location Rt brachial Position Sitting Pulse 89 Intake Visit Reasons: S/P RIH w/mesh Intake Note: This patient presents for a post-op assessment status post right inguinal hernia with mesh. Patient denies complaints at this time. 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 Doing quite well. He has minimal incisional discomfort. He has time diet. He is having normal bowel habits now that he stopped taking analgesics. [facility] Medical History Depression Hernia Surgical History H/O right inguinal hernia repair (~2022) Hx of abdominal surgery Hx of left inguinal hernia repair Social History Alcohol intake: never Patient Tobacco Use Status: Never used Tobacco Second Hand Smoke Exposure: No Substance Use Type: Marijuana Physical Exam Vital Signs: Last Vital Signs Pulse 89 03/20/23 10:56 BP 139/75 03/20/23 10:56 GI Other: Abdomen soft. Wound clean dry and intact healing uneventfully. Assessment & Plan Assessment & Plan (1) Right inguinal hernia: Code(s): K40.90 - Unilateral inguinal hernia, without obstruction or gangrene, not specified as recurrent Plan Patient has been given local instructions, and will follow-up p.r.n.. Coding Level of Care Code Global (63247) Diagnoses Right inguinal hernia K40.90
[2023-03-20 10:56] VITALS: BP 139/75; PULSE 89
== END 2023-03-20 11:32 | disposition home or self-care (01) ==
PROVIDERS: Visit Provider Surgery
DX: K40.90 Unilateral inguinal hernia, without obstruction or gangrene, not specified as recurrent (principal)
CPT/HCPCS: 99024

== ENCOUNTER → 2023-03-20 10:42 | Outpatient (BNVA) | payer SELFPAY | PROVIDERS: Visit Provider Surgery ==

== ENCOUNTER 2024-01-15 22:38 | Emergency (ER) | payer SELFPAY ==
[2024-01-15 22:45] VITALS: BP 142/83; PULSE 96; RESP 17; TEMP 36.6; O2SAT 98; BMI 25.6
[2024-01-15 23:12] LABS: Appearance Urine Clear; Color Urine Yellow; Glucose Urine UA Negative (Negative); Leukocyte Esterase Urine Moderate (2+) (Negative); Nitrite Urine Negative (Negative); PH 5.5 (5.0-9.0); Specific Gravity - Urine >= 1.030 (1.005-1.025); UMIC TRIGGER UACC YES; Urine Blood Negative (Negative); Urine Ketones 15 mg/dL (Negative); Urine Protein Trace mg/dL (Neg-Trace)
[2024-01-15 23:16] LABS: Bacteria Urine None Seen (None Seen); Hyaline Casts Urine 0-2 /LPF (0-2); RBC Urine 0-2 /HPF (0-2); Squamous Epithelial Cell Urine 0-2 /HPF (0-2); UACC Culture Trigger YES; WBC Urine >50 /HPF (0-5)
[2024-01-16 00:19] VITALS: BP 137/85; PULSE 72; RESP 16; TEMP 36.4; O2SAT 95
--- NOTE | 2024-01-16 01:17 | ED.MALEGU ---
HPI - Male Genitourinary General Chief complaint: Urogenital-Male Stated complaint: personal Time Seen by Provider: 01/16/24 01:07 Source: patient, RN notes reviewed and old records reviewed Mode of arrival: ambulatory Limitations: no limitations History of Present Illness ED Provider: Natalia HARTMAN Narrative: 28-year-old male presents for evaluation of burning with urination and urethral discharge. Patient reports his symptoms started yesterday He last had sexual intercourse about 1 week ago. He reports he used protection but ?the condom broke. ? Denies any testicular pain or swelling. He has some pain radiating up into his lower abdomen Denies any fevers, chills Related Data Home Medications ?Medication ?Instructions ?Recorded ?Confirmed ibuprofen 200 mg tablet 200 mg PO Q6H PRN 03/20/23 Previous Rx's ?Medication ?Instructions ?Recorded doxycycline hyclate 100 mg tablet 100 mg PO BID #13 tabs 01/16/24 Allergies Allergy/AdvReac Type Severity Reaction Status Date / Time No Known Allergies Allergy Verified 01/15/24 22:50 [No Known Allergies*] Review of Systems Constitutional: Constitutional: Denies body ache(s), Denies chills and Denies fever(s) Eyes: Eyes: Denies blurry vision Cardiovascular: Cardiovascular: Denies chest pain and Denies dyspnea Respiratory: Respiratory: Denies cough and Denies dyspnea Gastrointestinal: Gastrointestinal: Reports abdominal pain Genitourinary: Genitourinary: Reports dysuria, Reports penile discharge and Denies testicular pain PMFSH Past Medical History Medical History Depression Hernia Surgical History H/O right inguinal hernia repair (~2022) Hx of abdominal surgery Hx of left inguinal hernia repair Social History Social History Alcohol intake: never Patient Tobacco Use Status: Never used Tobacco Second Hand Smoke Exposure: No Substance Use Type: Marijuana Advance Directives: No Advance Directives Information Provided: Yes Do you have a plan to hurt others: No Plan Physical Exam Vital Signs: Vital Signs: Last Vital Signs Temp 97.6 F 01/16/24 00:19 Pulse 72 01/16/24 00:19 Resp 16 01/16/24 00:19 BP 137/85 01/16/24 00:19 Pulse Ox 95 01/16/24 00:19 O2 Del Method Room Air 01/16/24 00:19 BMI result Body Mass Index 25.6 Const: General: healthy appearing, comfortable, no acute distress, alert and awake Nutritional Appearance: well nourished Orientation/consciousness: patient oriented x3 HEENT: Head: Yes normocephalic and Yes atraumatic Eyes: Eyelids: Yes eyelids normal Conjunctivae: conjunctivae normal Sclerae: sclerae normal Corneas: corneas normal Pupils: Equal, round and reactive pupils present EOM: EOMs intact bilaterally Neck: Neck: Yes full ROM Resp: Effort & Inspection: normal respiratory effort, able to speak in complete sentences and not labored : Other: Uncircumcised male phallus. The patient is easily able to retract the foreskin. There is whitish green urethral discharge. No lesions to the glans of the penis Skin: General skin exam: elasticity normal Neuro: General: patient oriented x3 Cranial nerves: Yes Equal, round and reactive pupils present and Yes Bilaterally intact EOM present Cognition (Neuro): normal cognition Medical Decision Making Medical Decision Making MDM Narrative: Patient has significant urethral discharge. Likely gonorrhea versus chlamydia. He was tested for both. UA shows greater than 50 white cells. He was treated with ceftriaxone injection as well as doxycycline b.i.d. x7 days. He is afebrile. No testicular pain to suggest epididymitis. Differential Diagnosis Differential Diagnoses: The differential diagnosis associated with the presentation includes Urethritis Gonorrhea infection Chlamydia infection UTI Lab Data Labs: Lab Results 01/15/24 Range/Units 22:58 Urine Color Yellow Urine Appearance Clear Urine pH 5.5 (5.0-9.0) Ur Specific [place] >= 1.030 H (1.005-1.025) Urine Protein Trace (Neg-Trace) mg/dL Urine Glucose (UA) Negative (Negative) mg/dL Urine Ketones 15 (Negative) mg/dL Urine Blood Negative (Negative) Urine Nitrite Negative (Negative) Ur Leukocyte Esterase Moderate (2+) H (Negative) Urine RBC 0-2 (0-2) /HPF Urine WBC >50 H (0-5) /HPF Ur Squamous Epith Cells 0-2 (0-2) /HPF Urine Bacteria None Seen (None Seen) Hyaline Casts 0-2 (0-2) /LPF Discharge Plan Discharge Clinical Impression: Urethritis Patient Disposition: Home, Self-Care Instructions: Sexually Transmitted Diseases (ED) Additional Instructions: You were treated for both gonorrhea and chlamydia. We will call you if you test positive for either. Continue the antibiotic twice daily for 7 days You should refrain from sexual intercourse for 2 weeks from today Follow-up with your primary doctor Prescriptions: New doxycycline hyclate 100 mg tablet 100 mg PO BID Qty: 13 0RF No Action ibuprofen 200 mg tablet 200 mg PO Q6H PRN Print Language: Persian
[2024-01-16] MEDS: Doxycycline Monohydrate 100 MG CAPSULE PO (01:31)
[2024-01-16] MEDS: cefTRIAXone sodium 500 MG, Lidocaine HCl 1 % MPF 1 ML IM (01:31)
[2024-01-16 01:34] VITALS: BP 137/85; PULSE 72; RESP 16; TEMP 36.4; O2SAT 95
[2024-01-16 05:31] LABS: CT PCR NOT DETECTED (Not Detect.); NG PCR DETECTED (Not Detect.)
== END 2024-01-16 01:35 | disposition home or self-care (01) ==
PROVIDERS: Emergency Provider Internal Medicine
DX: A54.01 Gonococcal cystitis and urethritis, unspecified (principal); R30.0 Dysuria; R36.9 Urethral discharge, unspecified
CPT/HCPCS: 0353U; 81001; 87086; 96372; 99283; 99284; J0696

== ENCOUNTER 2025-06-15 10:17 | Emergency (ER) | payer SELFPAY ==
--- NOTE | ~2025-06-15 | XR_ITS ---
EXAMINATION: XR CHEST CLINICAL INFORMATION: palpitations, lightheadedness COMPARISON: December 23, 2019 TECHNIQUE: 2 views of the chest were obtained. FINDINGS: There is no pneumothorax. Lungs are clear. Heart size is within normal limits. There is no sign of pleural effusion. XR/XR chest 2V IMPRESSION: No acute disease Electronically signed by: Avinash Rizzo MD 06/15/2025 10:42 AM [facility] [place]
[2025-06-15 10:23] VITALS: BP 151/86; PULSE 94; RESP 18; TEMP 36.7; O2SAT 96; BMI 24.5
--- NOTE | 2025-06-15 10:23 | ED_ITS ---
HPI - General Adult General Chief complaint: General Medical Stated complaint: hypertension, lightheaded, shaky Time Seen by Provider: 06/15/25 11:40 Source: patient, RN notes reviewed and old records reviewed Mode of arrival: ambulatory Limitations: no limitations History of Present Illness ED Provider: Mercedes [facility] [employer] [facility] narrative: Patient is a 29-year-old male with no reported past medical history presenting to the emergency department with complaint of palpitations which woke him from sleep around 4:00 a.m. today. Describes the sensation as ?how you feel after an energy drink. ? States that he did not have any energy drinks last night but does drink them occasionally. Denies drinking coffee regularly. States the palpitations resolved after a few minutes. He denies any current chest pain, palpitations or dyspnea. Does not currently have a PCP. Also concerned because his blood pressure at home was 160 systolic. Denies headache, blurred or double vision or other visual changes. MD complaint: palpitations Onset (ago): hour(s) Related Data Home Medications ?Medication ?Instructions ?Recorded ?Confirmed ibuprofen 200 mg tablet 200 mg PO Q6H PRN 03/20/23 Previous Rx's ?Medication ?Instructions ?Recorded doxycycline hyclate 100 mg tablet 100 mg PO BID #13 ta bs 01/16/24 Allergies Allergy/AdvReac Type Severity Reaction Status Date / Time No Known Allergies (No Known Allergy Verified 06/15/25 10:25 Allergies*) Review of Systems 2 Review of Systems: As per HPI Yes all other systems are reviewed and are negative Constitutional: Constitutional: Reports as per HPI [facility] Past Medical History Medical History Depression Hernia Surgical History H/O right inguinal hernia repair (~2022) Hx of abdominal surgery Hx of left inguinal hernia repair Social History Social History Alcohol intake: never Patient Tobacco Use Status: Never used Tobacco Second Hand Smoke Exposure: No Substance Use Type: Marijuana Advance Directives: No Advance Directives Information Provided: No Physical Exam ED Vital Signs: Vital Signs - 24 hr 06/15/25 10:23 Temperature 98.0 F Pulse Rate 94 Respiratory Rate 18 Blood Pressure 151/86 H Pulse Oximetry 96 Oxygen Delivery Method Room Air BMI result Body Mass Index 24.5 Vital signs have been reviewed and appear to be correct. Blood pressure elevated. Heart rate normal. Respiratory rate normal. Temperature normal. Oxygen saturation normal. Const General: cooperative, healthy appearing and no acute distress Orientation/consciousness: oriented to person, oriented to place, oriented to time and patient oriented x3 Limitations: no limitations HENMT Head: Yes normocephalic and Yes atraumatic Ears: external ears normal General nose exam: Normal external nose present Face and sinus: Yes face symmetric Mouth: oropharynx normal and moist mucous membranes Throat: Yes uvula midline Eyes Pupils: Equal, round and reactive pupils present Neck Neck: Yes normal visual inspection and Yes supple Resp Effort & Inspection: normal respiratory effort and able to speak in complete sentences Auscultation: clear to auscultation bilaterally Cardio Rate: regular rate Rhythm: regular rhythm Heart sounds: S1 normal heart sound present and S2 normal heart sound present GI Palpation (GI): Soft to palpation and nontender Auscultation: normoactive bowel sounds General: Yes no CVA tenderness Back/Spine/Pelvis Back: no CVA tenderness Skin General skin exam: elasticity normal and turgor normal Neuro General: oriented to person, oriented to place, oriented to time, patient oriented x3, moves all extremities, no focal motor deficits and CN's II-XI intact bilaterally Cranial nerves: Yes Equal, round and reactive pupils present Cognition (Neuro): normal cognition Extrem General: Yes full ROM, Yes no pedal edema and Yes no calf tenderness Psych Mental Status: mental status grossly normal Affect: normal affect Thought process: Normal thought process present Course Course Course Narrative: Rapid medical examination performed in triage by Tiny Crowley PA-C: Patient is a 29 year old assigned male at presenting to the emergency department with concerns of elevated blood pressure. Patient states that he has been having elevated blood pressures. Patient states that he has been feeling lightheaded and restless. Detailed physical exam and review of systems are deferred to the mental hygiene consultant. EKG, labs, and imaging ordered. Patient placed back in the waiting room pending room availability and results. Medical Decision Making Medical Decision Making MDM Narrative: Patient is a 29-year-old male with no reported past medical history presenting to the emergency department with complaint of palpitations which woke him from sleep around 4:00 a.m. today. On exam patient is awake, A+Ox3, VS WNL, afebrile, normal neurological exam without focal deficits, physical exam findings as above. Given reported symptoms and physical exam findings, initial differential includes but is not limited to cardiac arrhythmia, electrolyte abnormality, hypertension. Labs notable for no significant electrolyte abnormalities, no evidence of EMILY. UA is without evidence of infection or proteinuria. X-ray chest notable for no evidence of pneumonia, pneumothorax. My interpretation is in agreement with the radiologist's interpretation. Patient has been on medical laboratory technical officer for duration of ED visit without evidence of arrhythmia. EKG shows normal sinus rhythm. Results discussed with patient and all questions answered. Will refer patient to area PCPs and discussed with him that he should have his blood pressure managed with medication. Return precautions discussed. Patient verbalized understanding of and agreement with plan. Differential Diagnosis Differential Diagnoses: The differential diagnosis associated with the presentation includes As per [facility] Admission/Observation Consideration of admission/observation: Escalation of care including admission/observation considered Patient would have been admitted to the hospital and transferred to appropriate facility had their clinical presentation warranted hospital admission. Lab Data [facility] Lab Attestation statement: I reviewed the patient's lab results. as per [facility] 06/15/25 10:55 06/15/25 10:55 Labs: Lab Results 06/15/25 06/15/25 Range/Units 10:55 10:59 WBC 8.3 (4.8-10.8) X10*3/uL RBC 5.89 H (4.60-5.80) X10*6/uL Hgb 17.6 (14.0-18.0) g/dl Hct 50.1 (42.0-52.0) % MCV 85.1 (80.0-98.0) fL MCH 29.9 (27.0-33.0) pg MCHC 35.1 (31.0-36.0) g/dl RDW 12.1 (11.0-16.0) % Plt Count 223 (160-400) X10*3/uL MPV 10.2 (9.4-12.4) fL Immature Gran % (Auto) 0.2 (0.0-0.4) % Neut % (Auto) 82.3 H (45-73) % Lymph % (Auto) 11.9 L (20-40) % Simpson % (Auto) 5.3 (2-11) % Eos % (Auto) 0.1 (0-4) % Baso % (Auto) 0.2 (0-2) % Lymph # (Auto) 1.0 L (1.2-4.9) X10*3/uL Simpson # (Auto) 0.4 (0.1-1.2) X10*3/uL Eos # (Auto) 0.0 (0.0-0.4) X10*3/uL Baso # (Auto) 0.0 (0.0-0.2) X10*3/uL Abs Immat Gran (auto) 0.02 (0.00-0.03) X10*3/uL Absolute Neuts (auto) 6.8 (2.0-8.3) x10*3/uL Absolute Nucleated RBC 0.000 (0.0-0.012) X10*3/uL Nucleated RBC % (auto) 0.0 (0.0-0.2) /100WBC Sodium 140 (135-145) mmol/L Potassium 4.3 (3.3-5.1) mmol/L Chloride 108 (96-108) mmol/L Carbon Dioxide 26 (22-29) mmol/L Anion Gap 10 L (12-20) BUN 13 (9-16) mg/dL Creatinine 0.86 (0.5-1.4) mg/dL Estim Creat Clear Calc 157.0 Estimated GFR > 60 Random Glucose 100 (60-115) mg/dL Calcium 9.6 (8.4-10.2) mg/dL Magnesium 1.7 (1.6-2.6) mg/dL Total Bilirubin 0.4 (0.0-1.0) mg/dL AST 21 (5-37) U/L ALT 19 (0-40) U/L Alkaline Phosphatase 68 (39-117) U/L Troponin I High Sens < 2.7 (<3.5-35.0) ng/L Total Protein 7.0 (6.5-8.0) g/dL Albumin 4.6 (3.5-5.0) g/dL Urine Color Yellow Urine Appearance Clear Urine pH 7.0 (5.0-9.0) Ur Specific [place] 1.015 (1.005-1.025) Urine Protein Negative (Neg-Trace) mg/dL Urine Glucose (UA) Negative (Negative) mg/dL Urine Ketones Negative (Negative) mg/dL Urine Blood Negative (Negative) Urine Nitrite Negative (Negative) Ur Leukocyte Esterase Negative (Negative) Independent Interpretation I performed an independent interpretation of an: EKG (Normal sinus rhythm, rate 83 beats per minute, normal [place] interval and QTC) and Plain X-Ray Interpretation: Chest x-ray without evidence of pneumonia or pneumothorax Radiology Impression Discussion of test interpretation with radiology: I have reviewed the radiologist's reading. Radiologist Impression: XR/XR chest 2V IMPRESSION: No acute disease External Record Review External record reviewed: Inpatient record, Office record and Outpatient record Discharge Plan Discharge Clinical Impression: Palpitations Patient Disposition: Home, Self-Care Instructions: Heart Palpitations (DC), Hypertension (ED) Additional Instructions: You were evaluated in the emergency department today for palpitations and elevated blood pressure. It is important that you establish care with a primary care provider so that your blood pressure can be managed with medication. We recommend that you avoid any food or drink with caffeine, especially energy drinks as this can cause palpitations. Return to the emergency department if you develop chest pain, palpitations that are persistent, shortness of breath, dizziness or lightheadedness, fainting or any other new or concerning symptoms. Prescriptions: No Action doxycycline hyclate 100 mg tablet 100 mg PO BID Qty: 13 0RF ibuprofen 200 mg tablet 200 mg PO Q6H PRN Referrals: [facility] [place] [facility] [place]Provider Group, Family Practice] [facility] [place] [Provider Group, Internal Medicine] [facility] [place] [facility], Tricia [Provider Group, Internal Medicine] Jason Ansari MD [Physician, Internal Medicine] Clinical Impression: Palpitations Stand Alone Forms: Work/School Release Print Language: Urdu
--- NOTE | 2025-06-15 10:25 | ECG_ITS ---
Test Reason : palpitations Blood Pressure : */* mmHG Vent. Rate : 83 BPM Atrial Rate : 83 BPM P-R Int : 156 ms QRS Dur : 92 ms QT Int : 338 ms P-R-T Axes : 57 13 31 degrees QTcB Int : 397 ms Normal sinus rhythm Normal ECG No previous ECGs available Referred By: Tiny Crowley Electronically Signed By: Jovani New
[2025-06-15 10:59] LABS: MANUAL DIFF FLAG NO
[2025-06-15 11:00] LABS: Hematocrit 50.1 % (42.0-52.0); Hemoglobin 17.6 g/dl (14.0-18.0); Imm Gran Abs Auto 0.02 X10*3/uL (0.00-0.03); Imm Gran Pct Auto 0.2 % (0.0-0.4); Lymphocytes Absolute Auto 1.0 X10*3/uL (1.2-4.9); Mean Corpuscular HGB Conc 35.1 g/dl (31.0-36.0); Mean Corpuscular Hemoglobin 29.9 pg (27.0-33.0); Mean Corpuscular Volume 85.1 fL (80.0-98.0); NRBC Abs Auto 0.000 X10*3/uL (0.0-0.012); NRBC Pct Auto 0.0 /100WBC (0.0-0.2); Platelet Count 223 X10*3/uL (160-400); Red Blood Count 5.89 X10*6/uL (4.60-5.80); White Blood Count 8.3 X10*3/uL (4.8-10.8)
[2025-06-15 11:19] LABS: Alanine Aminotransferase 19 U/L (0-40); Albumin Level 4.6 g/dL (3.5-5.0); Alkaline Phosphatase 68 U/L (39-117); Anion Gap 10 (12-20); Aspartate Amino Transferase 21 U/L (5-37); Blood Urea Nitrogen 13 mg/dL (9-16); Calcium 9.6 mg/dL (8.4-10.2); Carbon Dioxide 26 mmol/L (22-29); Chloride 108 mmol/L (96-108); Creatinine Clr Calc Pharmacy 157.0; Estimated Glomerular Filt Rate > 60; Magnesium 1.7 mg/dL (1.6-2.6); Potassium 4.3 mmol/L (3.3-5.1); Sodium 140 mmol/L (135-145); Total Protein 7.0 g/dL (6.5-8.0)
[2025-06-15 11:20] LABS: Appearance Urine Clear; Glucose Urine UA Negative (Negative); PH 7.0 (5.0-9.0); Specific Gravity - Urine 1.015 (1.005-1.025)
[2025-06-15 11:27] LABS: Troponin-I High Sensitivity < 2.7 ng/L (<3.5-35.0)
--- NOTE | 2025-06-15 13:18 | PC.NURSE ---
Pt left without receiving discharge paperwork
--- OUTSIDE RECORDS SUMMARY | 2025-06-15 14:44 | XMS_ITS | Clinical Summary ---
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 Call clinic if systolic >170 or diastolic >90. Call for appointment if values consistently above >140/90 1 each 3 Active HYDROcodone-zee taminophen ([place]) 5-325 MG tablet TAKE 1 TABLET BY MOUTH EVERY 4 TO 6 HOURS NEEDED FOR PAIN 3 Active Active Problems No known active problems Family History Medical History Relation Name Comments Hypertension Father hydronephrosis Father Hypertension Mother Relation Name Status Comments Father Mother Social History Tobacco Use Types Packs/Day Years Used Date Smoking Tobacco: Never Smokeless Tobacco: Never Tobacco Cessation:Counseling Given: Not Answered Alcohol Use Standard Drinks/Week Comments Never 0 (1 standard drink = 0.6 oz pur e alcohol) Sex and Gender Information Value Date Recorded Sex Assigned at Male 04/20/2023 3:59 PM EDT Legal Sex Male 10:22 AM EDT Gender Identity Male 04/20/2023 3:59 PM EDT Sexual Orientation Don't know 04/20/2023 3: 59 PM EDT Last Filed Vital Signs Vital Sign Reading Time Taken Comments Blood Pressure 122/78 09/17/2023 8:32 AM EST Pulse 92 09/17/2023 8:32 AM EST Temperature 36.8 C (98.2 F) 04/18/2023 10:11 AM EDT Respiratory Rate 18 04/18/2023 10:1 1 AM EDT Oxygen Saturation 99% 04/18/2023 10: 11 AM EDT Inhaled Oxygen Concentration - - Weight 94.3 kg (207 lb 12.8 oz) 023 10:11 AM EDT Height 193 cm (6' 4 ) 04/18/2023 10:11 AM EDT Body Mass Index 25.29 04/18/2023 10:11 AM EDT Plan of Treatment Health Maintenance Due Date Last Done Comments Dental Prophylaxis 1996 Depression Screening 1996 HIV Screening 1996 SDOH Screening 1996 Disability Screening 1996 Alcohol/Substance Use Screening 2008 Family Planning (PISQ) 10/23/2011 HPV Vaccines (1 - Male 3-dos e series) 10/23/2011 Hepatitis C Screening 2014 DTaP/Tdap/Td Vaccines (1 - Tdap) 10/23/2015 Hepatitis B Vaccines (1 of 3 - 19+ 3-dose series) 10/23/2015 Dental Oral Exam 03/04/2024 09/03/2023 Dental X-Ray: Bitewings 09/04/2024 09/03/19 24, 08/14/2023 Tobacco Screening 09/17/2024 09/17/2023 COVID-19 Vaccine (1 - 2023-2 5 season) 2025 Influenza Vaccine (#1) 2025 Dental X-Ray: Full Mouth 09/04/2026 09/03/2023 Zoster Vaccines (1 of 2) 2046 RSV Patients and Patients Aged 60 years or older (1 - 1-dose 75+ series) 10/23/2071 HIB Vaccines Aged Out No longer eligi ble based on patient's age to complete this topic Hepatitis A Vaccines Aged Out No long er eligible based on patient's age to complete this topic IPV Vaccines Aged Out No longer eligi ble based on patient's age to complete this topic Meningococcal B Vaccine Aged Out No l onger eligible based on patient's age to complete this topic Meningococcal Vaccine Aged Out No maximus eli eligible based on patient's age to complete this topic Pneumococcal Vaccine: Pediatrics (0 to 5 Years) and At-Risk Patients (6 to 49) Years Aged Out No longer eligible b ased on patient's age to complete this topic RSV under 20 months Aged Out No longe r eligible based on patient's age to complete this topic Rotavirus Vaccines Aged Out No longer eligible based on patient's age to complete this topic Procedures Procedure Name Priority Date/Time Associated Diagnosis Comments INTRAORAL - COMPLETE SERIES OF RADIOGRAPHIC IMAGES Routine 09/03/2023 10:30 AM EST Encounter for dental examination Dental caries Tooth impaction COMPREHENSIVE ORAL EVALUATION - NEW OR ESTABLISHED PATIENT Routine 09/03/2023 10:30 AM EST Encounter for dental examination Dental caries Tooth impaction from Last 3 Months or Most Recently Relevant to Health Maintenance Insurance [address] [address] [place] [address] C[facility] MEDICAID STAND ADULT
== END 2025-06-15 13:17 | disposition home or self-care (01) ==
PROVIDERS: Physician Assistant Medical; Emergency Provider Emergency Medicine
DX: R00.2 Palpitations (principal); R42 Dizziness and giddiness; I10 Essential (primary) hypertension
CPT/HCPCS: 36415; 71046; 80053; 81003; 83735; 84484; 85025; 93005; 99283

== ENCOUNTER → 2025-06-15 10:25 | Outpatient (BNV) | payer SELFPAY | PROVIDERS: Emergency Provider Emergency Medicine; Visit Provider Internal Medicine Cardiovascular Disease | DX: R00.2 Palpitations (principal) | CPT/HCPCS: 93010 ==

== ENCOUNTER → 2025-06-15 10:25 | Outpatient (BNV) | payer SELFPAY | PROVIDERS: Visit Provider Radiology Diagnostic Radiology | DX: R00.2 Palpitations (principal); R42 Dizziness and giddiness | CPT/HCPCS: 71046 ==

== ENCOUNTER 2025-06-27 18:07 | Emergency (ER) | payer OTHER, SELFPAY ==
--- NOTE | ~2025-06-27 | CT_ITS ---
CLINICAL HISTORY: flank pain CT abdomen and pelvis without contrast Comparison: None provided Findings: Lung bases: Clear. Liver: No focal lesions. No biliary ductal dilatation. Gallbladder: Noninflamed gallbladder. Spleen: Normal Pancreas: No solid mass or main duct dilation. Adrenal glands: No nodules. Kidneys: Mild left hydronephrosis secondary to a 4 mm stone in the proximal left ureter. No right hydronephrosis. Nonobstructing stone in the midpole right kidney. Multiple bilateral renal hypodensities, likely cysts, but incompletely evaluated. Pelvic organs: Normal. Peritoneum and Gastrointestinal: Fatty infiltration of the terminal ileum likely due to prior inflammation. No bowel obstruction, pneumoperitoneum, or ascites. Noninflamed appendix. Lymph nodes: No lymphadenopathy. Vessels: No abdominal aortic aneurysm. Bones and soft tissues: Unremarkable. IMPRESSION: Mild left hydronephrosis secondary to a 4 mm stone in the proximal left ureter. Nonobstructing right renal stone. This document has been electronically signed by: Juliet Young MD on 06/27/2025 19:50:01
[2025-06-27 18:09] VITALS: BP 139/79; PULSE 82; RESP 20; TEMP 36.1; O2SAT 99; BMI 24.3
--- NOTE | 2025-06-27 18:09 | ED_ITS ---
HPI - Abdominal Pain General Chief Complaint: Back Pain/Injury Stated Complaint: pain in lumbar & abd, ? kidney stone Time Seen by Provider: 06/27/25 18:41 Source: patient and family Mode of arrival: ambulatory Limitations: no limitations History of Present Illness ED Provider: ALLY Moss HPI narrative: Chief Complaint: ?Left-sided back pain with nausea.? History of Present Illness: 28-year-old male presents with acute, left-sided back/flank pain that began approximately two days ago and has worsened today. He notes associated nausea without vomiting. He denies testicular pain, dysuria, or prior history of kidney stones. Denies alcohol or recreational drug use. No known fever was reported. Pain is present at the time of evaluation. A urine sample is planned to evaluate for infection. Related Data Home Medications ?Medication ?Instructions ?Recorded ?Confirmed ibuprofen 200 mg tablet 200 mg PO Q6H PRN 03/20/23 Previous Rx's ?Medication ?Instructions ?Recorded doxycycline hyclate 100 mg tablet 100 mg PO BID #13 ta bs 01/16/24 ketorolac 10 mg tablet 10 mg PO Q6H PRN pain #20 ta bs 06/27/25 ondansetron 4 mg disintegrating 4 mg PO Q8H PRN nausea and 06/27/25 tablet vomiting #10 tabs oxycodone 5 mg tablet 5 mg PO Q8H PRN pain, severe #10 06/27/25 tabs tamsulosin 0.4 mg capsule (Flomax) 0.4 mg PO DAILY #7 caps 06/27/25 Allergies Allergy/AdvReac Type Severity Reaction Status Date / Time No Known Allergies (No Known Allergy Verified 06/27/25 18:11 Allergies*) Review of Systems Review of Systems ? Constitutional: Mild chills; denies fever. ? Gastrointestinal: Positive nausea; denies vomiting. ? Genitourinary: Left flank/back pain; denies testicular pain; denies urinary difficulties. ? All other systems not discussed. Yes all other systems are reviewed and are negative PMFSH Past Medical History Attestation statement: The following information was validated with the patient. Source: old records reviewed and nursing notes reviewed Medical History Depression Hernia Surgical History H/O right inguinal hernia repair (~2022) Hx of abdominal surgery Hx of left inguinal hernia repair Social History Social History Alcohol intake: never Patient Tobacco Use Status: Never used Tobacco Smoked in Last 30 Days: No Second Hand Smoke Exposure: No Use of substances other than those prescribed or required for medical reasons: No Substance Use Type: Marijuana Advance Directives: No Advance Directives Information Provided: No Physical Exam ED Vital Signs: Vital Signs - 24 hr 06/27/25 18:09 06/27/25 20:15 06/27/25 22:08 Temperature 97 F 97.5 F 98.1 F Pulse Rate 82 86 80 Respiratory Rate 20 18 14 Blood Pressure 139/79 134/80 132/85 Pulse Oximetry 99 95 97 Oxygen Delivery Method Room Air Room Air Room Air BMI result Body Mass Index 24.3 Course Course Course Narrative: Yolie Albertlucia [employer]ILY [employer] WORK[employer] 06/27 1810 This is rapid medical exam. Deferred additional HPI, ROS, PE to primary provider. 29 yo male with PMH of hydronephrosis here with left flank pain, nausea x 3 days. Will obtain labs, UA VSS Reevaluation(s) Reevaluation #1: Leukocytosis 22.1 with left shift this could be reactive in the setting of nausea vomiting. Chemistry with no acute findings eating intervention lactic acid negative. CT scan pending, UA pending Time: 21:08 Reevaluation #2: CT scan showing a left-sided stone with hydronephrosis. Will give Zosyn. I did speak to Urology recommends further pain management with morphine as patient is still uncomfortable. Time: 21:09 Reevaluation #3: Sign out to Raven Holguin PA-C have accepted care of the patient at signed out pending urinalysis, reassessment and final disposition Labs: Urine not infected Patient is well-appearing, his symptoms are well controlled, sending with home care instructions, medications, he can follow up with Urology as an outpatient as needed. Medical Decision Making Medical Decision Making [facility] Narrative: 1847 28-year-old male with acute left flank pain and nausea. Differential includes nephrolithiasis versus alternative genitourinary or gastrointestinal pathology. Problem #1: Suspected nephrolithiasis Assessment: Acute onset left-sided flank pain, no prior stone history, nausea without vomiting, exam consistent with renal colic. Plan: * Pain control: Administer Dilaudid as ordered. * Diagnostics: CT abdomen/pelvis to rule out kidney stone; urinalysis to exclude infectious etiology; basic labs including electrolytes. * Reevaluate patient after imaging and laboratory studies return; adjust management based on results. Problem #2: Nausea Assessment: Likely secondary to pain from suspected stone. Plan: * Symptom monitoring; reassess after pain control. Follow-up: Results-based disposition once imaging and labs are completed; patient to return to ED for worsening pain, fever, vomiting, or other new symptoms. Differential Diagnosis Differential Diagnoses: The differential diagnosis associated with the presentation includes * Nephrolithiasis (renal colic): Most likely given acute onset, location of pain, associated nausea, and absence of prior history. No urinary symptoms, but renal colic can present without hematuria or dysuria. * Pyelonephritis/urinary tract infection: Considered due to flank pain and mild chills, but less likely given absence of fever, dysuria, or urinary complaints. * Musculoskeletal back pain: Possible, especially with pain localized to the back/flank, but less likely given associated nausea and acute presentation. * Gastrointestinal causes (e.g., appendicitis, diverticulitis, constipation): Considered due to abdominal pain and nausea, but less likely given pain location and lack of bowel symptoms. * Referred pain from testicular torsion: Unlikely as patient denies testicular pain. * Pancreatitis: Considered due to nausea and abdominal pain, but less likely given pain location and absence of vomiting or alcohol use. * Other less likely causes (e.g., abdominal aortic aneurysm, retroperitoneal hemorrhage): Unlikely in this age group and clinical context, but considered in broad differential for acute flank pain. Admission/Observation Consideration of admission/observation: Escalation of care including admission/observation considered Lab Data 06/27/25 18:38 06/27/25 18:38 Labs: Lab Results 06/27/25 06/27/25 06/27/25 Range/Units 18:38 19:19 21:17 WBC 22.1 H (4.8-10.8) X10*3/uL RBC 6.05 H (4.60-5.80) X10*6/uL Hgb 18.0 (14.0-18.0) g/dl Hct 50.6 (42.0-52.0) % MCV 83.6 (80.0-98.0) fL MCH 29.8 (27.0-33.0) pg MCHC 35.6 (31.0-36.0) g/dl RDW 12.3 (11.0-16.0) % Plt Count 328 D (160-400) X10*3/uL MPV 10.0 (9.4-12.4) fL Immature Gran % (Auto) 0.5 H (0.0-0.4) % Neut % (Auto) 86.3 H (45-73) % Lymph % (Auto) 8.2 L (20-40) % [place] % (Auto) 4.6 (2-11) % Eos % (Auto) 0.1 (0-4) % Baso % (Auto) 0.3 (0-2) % Lymph # (Auto) 1.8 (1.2-4.9) X10*3/uL [place] # (Auto) 1.0 (0.1-1.2) X10*3/uL Eos # (Auto) 0.0 (0.0-0.4) X10*3/uL Baso # (Auto) 0.1 (0.0-0.2) X10*3/uL Abs Immat Gran (auto) 0.12 H (0.00-0.03) X10*3/uL Absolute Neuts (auto) 19.0 H (2.0-8.3) x10*3/uL Absolute Nucleated RBC 0.000 (0.0-0.012) X10*3/uL Nucleated RBC % (auto) 0.0 (0.0-0.2) /100WBC Sodium 141 (135-145) mmol/L Potassium 3.9 (3.3-5.1) mmol/L Chloride 104 (96-108) mmol/L Carbon Dioxide 25 (22-29) mmol/L Anion Gap 16 (12-20) BUN 12 (9-16) mg/dL Creatinine 1.06 (0.5-1.4) mg/dL Estim Creat Clear Calc 127.3 Estimated GFR > 60 Random Glucose 98 (60-115) mg/dL Lactic Acid 1.6 (0.5-2.0) mmol/L Calcium 10.0 (8.4-10.2) mg/dL Total Bilirubin 0.7 (0.0-1.0) mg/dL Direct Bilirubin 0.2 (0.0-0.5) mg/dL AST 22 (5-37) U/L ALT 17 (0-40) U/L Alkaline Phosphatase 75 (39-117) U/L Total Protein 7.4 (6.5-8.0) g/dL Albumin 5.0 (3.5-5.0) g/dL Lipase 19 (8-78) U/L Urine Color Yellow Urine Appearance Turbid Urine pH >= 9.0 (5.0-9.0) Ur Specific [place] 1.025 (1.005-1.025) Urine Protein 30 (1+) H (Neg-Trace) mg/dL Urine Glucose (UA) Negative (Negative) mg/dL Urine Ketones 40 (Negative) mg/dL Urine Blood Moderate (2+) H (Negative) Urine Nitrite Negative (Negative) Ur Leukocyte Esterase Trace H (Negative) Urine RBC 3-5 H (0-2) /HPF Urine WBC 0-5 (0-5) /HPF Ur Squamous Epith Cells 0-2 (0-2) /HPF Urine Bacteria None Seen (None Seen) Hyaline Casts 0-2 (0-2) /LPF Medications Administered Discontinued Medications Generic Name Dose Route Start Last Admin Trade Name Freq PRN Reason Stop Dose Admin Hydromorphone HCl 1 mg 06/27/25 18:41 06/27/25 18:44 Hydromorphone Hcl 1 Mg/Ml Syringe IVPUSH 06/27/25 18:42 1 mg ONCE ONE Administration Protocol Piperacillin Sod/Tazobactam 50 mls @ 100 mls/hr 06/27/25 21:08 06/27/25 22:52 Sod 3.375 gm/ Sodium Chloride IV 06/27/25 21:37 Infused ONCE ONE Infusion Sodium Chloride 1,000 mls @ 999 mls/hr 06/27/25 21:15 06/27/25 22:46 Ns IV 06/27/25 22:15 Infused .Q1H1M SOHAN Infusion Sodium Chloride 1,000 mls @ 999 mls/hr 06/27/25 21:15 06/27/25 22:46 Ns IV 06/27/25 22:15 Infused .Q1H1M SOHAN Infusion Ketorolac Tromethamine 30 mg 06/27/25 19:26 06/27/25 19:31 Ketorolac Tromethamine 15 Mg/Ml Vial IVPUSH 06/27/25 19:27 30 mg ONCE ONE Administration Morphine Sulfate 4 mg 06/27/25 20:29 06/27/25 20:34 Morphine Sulfate 4 Mg/Ml Cartridge IVPUSH 06/27/25 20:30 4 mg ONCE ONE Administration Protocol Ondansetron HCl 4 mg 06/27/25 18:46 06/27/25 19:19 Ondansetron Hcl 4 Mg/2 Ml Vial IVPUSH 06/27/25 18:47 4 mg ONCE ONE Administration Prednisone 20 mg 06/27/25 19:26 06/27/25 19:31 Prednisone 20 Mg Tablet PO 06/27/25 19:27 20 mg ONCE ONE Administration Tamsulosin HCl 0.4 mg 06/27/25 19:26 06/27/25 19:31 Tamsulosin Hcl 0.4 Mg Capsule PO 06/27/25 19:27 0.4 mg ONCE ONE Administration Critical Care Time Critical Care Time Critical Care Time: Yes Total Critical Care Time: 35 Attestation: I attest to this time spent taking care of the patient, obtaining history, physical, reviewing labs, imaging, treatment of patients condition +/- specialist/hospitalist consult +/- procedure Discharge Plan Discharge Clinical Impression: Hydronephrosis, left, Kidney calculi, Nausea & vomiting Patient Disposition: Home, Self-Care Instructions: Kidney Stones (ED), Renal Colic (ED) Additional Instructions: You are passing a kidney stone. See home care instructions. Your urine was not infected. Take the Flomax as directed this will help induce urine flow. Use the ketorolac as needed for pain, this is an anti-inflammatory. Uses Zofran as needed for nausea. Take the oxycodone as needed for further pain, this may cause drowsiness, do not drive or operate machinery while taking the medication. I am providing you with a contact for our urology service, call to schedule a follow up appointment. Return precautions for the onset of a fever, inability to urinate, intractable nausea vomiting, worsening severe abdominal pain. Prescriptions: New oxycodone 5 mg tablet 5 mg PO Q8H PRN (Reason: pain, severe) Qty: 10 0RF Rx Instructions: Partial Fill upon patient request. ketorolac 10 mg tablet 10 mg PO Q6H PRN (Reason: pain) Qty: 20 0RF Rx Instructions: maximum total duration of 5 days from all oral, intranasal, or parenteral formulations ondansetron 4 mg tablet,disintegrating 4 mg PO Q8H PRN (Reason: nausea and vomiting) Qty: 10 0RF tamsulosin [Flomax] 0.4 mg capsule 0.4 mg PO DAILY Qty: 7 0RF No Action doxycycline hyclate 100 mg tablet 100 mg PO BID Qty: 13 0RF ibuprofen 200 mg tablet 200 mg PO Q6H PRN Referrals: Toshia Silva MD [Physician, Urology] Referral Note: renal colic, in ED 06/27 Print Language: Austrian
[2025-06-27 18:43] LABS: MANUAL DIFF FLAG NO
[2025-06-27 18:44] LABS: Hematocrit 50.6 % (42.0-52.0); Hemoglobin 18.0 g/dl (14.0-18.0); Imm Gran Abs Auto 0.12 X10*3/uL (0.00-0.03); Imm Gran Pct Auto 0.5 % (0.0-0.4); Lymphocytes Absolute Auto 1.8 X10*3/uL (1.2-4.9); Mean Corpuscular HGB Conc 35.6 g/dl (31.0-36.0); Mean Corpuscular Hemoglobin 29.8 pg (27.0-33.0); Mean Corpuscular Volume 83.6 fL (80.0-98.0); NRBC Abs Auto 0.000 X10*3/uL (0.0-0.012); NRBC Pct Auto 0.0 /100WBC (0.0-0.2); Platelet Count 328 X10*3/uL (160-400); Red Blood Count 6.05 X10*6/uL (4.60-5.80); White Blood Count 22.1 X10*3/uL (4.8-10.8)
[2025-06-27 18:59] LABS: Alanine Aminotransferase 17 U/L (0-40); Albumin Level 5.0 g/dL (3.5-5.0); Alkaline Phosphatase 75 U/L (39-117); Anion Gap 16 (12-20); Aspartate Amino Transferase 22 U/L (5-37); Blood Urea Nitrogen 12 mg/dL (9-16); Calcium 10.0 mg/dL (8.4-10.2); Carbon Dioxide 25 mmol/L (22-29); Chloride 104 mmol/L (96-108); Creatinine Clr Calc Pharmacy 127.3; Estimated Glomerular Filt Rate > 60; Lipase 19 U/L (8-78); Potassium 3.9 mmol/L (3.3-5.1); Sodium 141 mmol/L (135-145); Total Protein 7.4 g/dL (6.5-8.0)
[2025-06-27 20:15] VITALS: BP 134/80; PULSE 86; RESP 18; TEMP 36.4; O2SAT 95
[2025-06-27 21:53] LABS: Appearance Urine Turbid; Glucose Urine UA Negative (Negative); PH >= 9.0 (5.0-9.0); Specific Gravity - Urine 1.025 (1.005-1.025); UMIC TRIGGER UACC YES
[2025-06-27 22:08] VITALS: BP 132/85; PULSE 80; RESP 14; TEMP 36.7; O2SAT 97
[2025-06-27 23:08] VITALS: BP 132/85; PULSE 80; RESP 14; TEMP 36.7; O2SAT 97
== END 2025-06-27 23:10 | disposition home or self-care (01) ==
PROVIDERS: Nurse Practitioner Family; Physician Assistant; Emergency Provider Student in an Organized Health Care Education/Training Program
DX: N13.2 Hydronephrosis with renal and ureteral calculous obstruction (principal); R11.2 Nausea with vomiting, unspecified
CPT/HCPCS: 36415; 74176; 80048; 80076; 81001; 81003; 83605; 83690; 85025; 87040; 96361; 96374; 96375; 99285; J1171; J1885; J2270; J2405; J2543

== ENCOUNTER → 2025-06-27 18:41 | Outpatient (BNV) | payer SELFPAY | PROVIDERS: Visit Provider Student in an Organized Health Care Education/Training Program | DX: N13.2 Hydronephrosis with renal and ureteral calculous obstruction (principal) | CPT/HCPCS: 74176 ==

== ENCOUNTER 2025-07-17 11:17 | Outpatient (AMB) | payer SELFPAY ==
--- NOTE | 2025-07-17 11:22 | A.OFFVIS_ITS ---
Intake Visit Reasons: kidney stone(set) Intake Note: Reason for Visit: New patient kidney stones Urology Meds: Tamsulosin Blood Thinners: None Labs: BUN: 12 Creatinine: 1.06(06/27/2025) Imaging: Abdomen/Pelvis CT (06/27/2025) Last PVR: None Family History: Prostate Cancer? No Bladder Cancer? No Kidney Cancer? No Smoking History? no Previous Urology? no Diet Clerk Required: No Accompanied by: Other Relationship Allergies No Known Allergies (No Known Allergies*) Allergy (Verified 07/17/25 11:28) HPI Comments Details: Santana is a pleasant male. He is seen for the following urologic conditions - nephrolithiasis Printed copy of relevant CT image provided Discussed minimizing soda increasing fluid intake Reimage six-month Will need yearly imaging for 5 years Nephrolithiasis Recent emergency room presentation Imaging - 07/07 3 mm proximal left ureteric stone Family history mother PFSH Medical History Depression Hernia Surgical History H/O right inguinal hernia repair (~2022) Hx of abdominal surgery Hx of left inguinal hernia repair Social History Alcohol intake: never Patient Tobacco Use Status: Never used Tobacco Second Hand Smoke Exposure: No Substance Use Type: Marijuana Review of Systems Const Denies chills and Denies fever(s) Card Reports no additional complaints and Denies syncope Resp Denies cough GI Denies abdominal pain and Denies heartburn Reports as per HPI and Denies change in libido Neuro Denies syncope Psych Denies change in libido Endo Denies change in libido Physical Exam Const General: cooperative, healthy appearing, comfortable and no acute distress Orientation/consciousness: patient oriented x3 HEENT Face and sinus: Yes normal facial exam Mouth: moist mucous membranes Neck Neck: Yes normal visual inspection, Yes full ROM and Yes trachea midline Chest Chest palpation & inspection: normal inspection of the chest Resp Effort & Inspection: normal respiratory effort, able to speak in complete sentences and no respiratory distress GI Inspection: Yes normal to inspection Back/Spine/Pelvis Cervical Spine: normal cervical lordosis Thoracic/Lumbar Spine: thoracic and lumbar spine normal to inspection Skin General skin exam: no rashes or lesions noted Neuro General: patient oriented x3, gait normal, tone normal and moves all extremities Extrem General: Yes normal to inspection and Yes capillary refill normal Assessment & Plan Assessment & Plan (1) Kidney calculi: Code(s): N20.0 - Calculus of kidney Category: Medical Plan Imaging six-month Orders: Orders US renal BI 6 Months N20.0 - Calculus of kidney Patient Instructions: This note is constructed using voice recognition software. While every effort has been made to ensure accuracy transcription typist errors may have been included. Imaging studies, laboratory and physical exam results were discussed and reviewed in detail. No major barriers to patient understanding were identified. An opportunity to ask questions regarding the treatment plan was provided. All questions were answered. The patient expressed understanding and agreement with the above treatment plan. The patient is aware they should contact our office by phone for worsening of their current condition or the appearance of new urologic symptoms. Compliance is encouraged with any medications and followup testing that is ordered. It is a privilege to participate in the urologic care of your patient. If you have any questions or concerns regarding treatment for the above conditions, or other urologic issues, please do not hesitate to contact me. The office telephone contact is [phone]. Sincerely, Dr Bruno Grimaldo MD, [facility] - Urology Compassionate Specialist Care for the Genitourinary System Coding Level of Care Code New Pt Level 3 (69846) Diagnoses Kidney calculi N20.0
--- OUTSIDE RECORDS SUMMARY | 2025-07-17 13:54 | XMS_ITS | Clinical Summary ---
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 Call clinic if systolic >170 or diastolic >90. Call for appointment if values consistently above >140/90 1 each 3 Active HYDROcodone-zee taminophen (Rose) 5-325 MG tablet TAKE 1 TABLET BY [...] Screening 09/17/2024 09/17/2023 COVID-19 Vaccine (1 - 2024-2 6 season) 2025 Influenza Vaccine (#1) 2025 Dental [...] Most Recently Relevant to Health Maintenance [place] [address] [place] [address] C3 [facility] MEDICAID STAND ADULT
== END 2025-07-17 11:40 | disposition home or self-care (01) ==
LOC: HO.HUSH 11:18
PROVIDERS: Visit Provider Urology
DX: N20.0 Calculus of kidney (principal)
CPT/HCPCS: 99203

== ENCOUNTER → 2025-07-17 11:17 | Outpatient (BNVA) | payer OTHER, SELFPAY | PROVIDERS: Visit Provider Urology | DX: N20.0 Calculus of kidney (principal) | CPT/HCPCS: 99202 ==